=== PATIENT | female | born 1950 | race Caucasian/White ===

== ENCOUNTER 2020-01-11 14:21 | Outpatient (CLI) | payer MEDICARE, OTHER, SELFPAY ==
--- NOTE | ~2020-01-11 | MM_ITS ---
EXAMINATION: MM screening [facility] BI w [place] HISTORY: Screening mammogram TECHNIQUE: Craniocaudal and mediolateral oblique 3-D tomosynthesis images were obtained and synthetic 2-D images were generated. CAD analysis was submitted and interpreted. COMPARISON: 01/16/2019, 01/08/2019, 01/06/2018, 01/03/2017, 12/31/2016, 12/30/2015 BREAST PARENCHYMAL COMPOSITION: There are scattered areas of fibroglandular density. FINDINGS: Scattered benign-appearing calcifications are present. There is no evidence of suspicious m ass, calcification, or architectural distortion to suggest malignancy in either breast. There has bee n no suspicious interval change. IMPRESSION: 1. No mammographic evidence of malignancy. 2. Recommend routine screening mammography in one year. BI-RADS Category 2: Benign finding(s). Reviewed, dictated and finalized at location A.
== END 2020-01-11 14:22 | disposition home or self-care (01) ==
PROVIDERS: PCP Family Medicine
DX: Z12.31 Encounter for screening mammogram for malignant neoplasm of breast (principal)
CPT/HCPCS: 77063; 77067

== ENCOUNTER 2020-04-21 09:18 | Outpatient (CLI) | payer MEDICARE, OTHER, SELFPAY ==
[2020-04-21 09:37] LABS: Basophils Absolute Auto 0.1 K/mm3 (0.0-0.1); Basophils Percent Auto 1.1 % (0.2-1.2); Eosinophils Absolute Auto 0.1 K/mm3 (0-0.3); Eosinophils Percent Auto 1.7 % (0-4.4); Hematocrit 42.2 % (37.0-47.0); Immature Granulocyte Absolute 0.01 K/mm3 (0.00-0.031); Immature Granulocyte Percent A 0.2 % (0-0.5); Lymphocytes Absolute Auto 1.52 K/mm3 (0.9-3.2); Lymphocytes Percent Auto 32.5 % (18.3-44.2); Mean Corpuscular HGB Conc 33.2 g/dl (32-36); Mean Corpuscular Hemoglobin 31.4 pg (26-34); Mean Corpuscular Volume 94.6 fl (80-100); Mean Platelet Volume 10.4 fl (7.4-10.4); Monocytes Absolute Auto 0.5 K/mm3 (0.1-0.6); Monocytes Percent Auto 10.1 % (2.6-8.5); Neutrophils Absolute Auto 2.5 K/mm3 (1.3-6.7); Neutrophils Percent Auto 54.4 % (45.5-73.1); Platelet Count Result 229 k/mm3 (150-375); Red Blood Count 4.46 M/mm3 (4.2-5.4); Red Cell Distribution Width 12.9 % (11.5-14.5); White Blood Count 4.7 K/mm3 (4.5-10.0)
[2020-04-21 09:54] LABS: Add Urine Microscopic? NO; Appearance Urine Clear (Clear); Bilirubin Urine Negative (Negative); Blood Urine Negative (Negative); Color Urine Yellow (Yellow); Glucose Urine UA Negative (Negative); Ketones Urine Negative (Negative); Leukocyte Esterase Ur Negative LEU/UL (Negative); Nitrate Urine Negative (Negative); Protein Urine Negative (Negative); Specific Grav Ur 1.014 (1.001-1.035); Urobilinogen Urine Negative mg/dL (<2.0)
[2020-04-21 10:11] LABS: Alanine Aminotransferase 11 U/L (4-35); Albumin Level 4.1 g/dL (3.5-5.1); Alkaline Phosphatase 68 U/L (38-126); Aspartate Amino Transferase 23 U/L (14-36); Bilirubin,Total 0.4 mg/dL (0.2-1.3); Blood Urea Nitrogen 8 mg/dL (7-17); Calcium 9.1 mg/dL (8.4-10.2); Carbon Dioxide 30 mmol/L (22-30); Chloride 104 mmol/L (98-107); Cholesterol 202 mg/dL (0-200); Estimated Glomerular Filt Rate > 60; Glucose 89 mg/dL (65-105); HDL Direct 82 mg/dL; Potassium 4.1 mmol/L (3.4-5.0); Sodium 138 mmol/L (137-145); Triglycerides 68 mg/dL (<150)
[2020-04-21 10:29] LABS: Vitamin D 25 Hydroxy 32.8 ng/mL
[2020-04-21 10:31] LABS: LDL Cholesterol Direct 93 mg/dL
[2020-04-21 11:22] LABS: Folic Acid 10.8 ng/mL (2.76->20)
== END 2020-04-21 09:19 | disposition home or self-care (01) ==
LOC: ANHLAB 09:23
PROVIDERS: PCP Family Medicine; Visit Provider Family Medicine
DX: E78.00 Pure hypercholesterolemia, unspecified (principal); M19.91 Primary osteoarthritis, unspecified site; R79.89 Other specified abnormal findings of blood chemistry; Z13.820 Encounter for screening for osteoporosis; Z79.899 Other long term (current) drug therapy
CPT/HCPCS: 36415; 80053; 80061; 81003; 82306; 82607; 82746; 84443; 85025

== ENCOUNTER 2020-05-04 14:55 | Outpatient (CLI) | payer MEDICARE, OTHER, SELFPAY ==
--- NOTE | ~2020-05-04 | DEXA_ITS ---
Bone Density Report Name: Jewell Mathur Age: 69 Sex: Female Ethnicity: White Date of : 1950 Indication: osteopenia; Referring Provider: Ethan Nelson Study: Bone densitometry was performed. Exam Date: May 04, 2020 Accession number: [id number] Bone Density: Region BMD T-score Z-score Classification AP Spine (L1-L4) 0.967 -0.7 1.5 Normal Femoral Neck (Left) 0.637 -1.9 0.0 Osteopenia Total Hip (Left) 0.714 -1.9 -0.3 Osteopenia Total Hip Bilateral Avg 0.702 -2.0 -0.4 Osteopenia Femoral Neck (Right) 0.554 -2.7 -0.8 Osteoporosis Total Hip (Right) 0.688 -2.1 -0.5 Osteopenia World Health Organization criteria for BMD impression classify patients as: Normal (T-score at or above -1.0), Osteopenia (T-score between -1.0 and -2.5), or Osteoporosis (T-score at or below -2.5). 10-year Fracture Risk: FRAX not reported because: Some T-score for Spine Total or Hip Total or Femoral Neck at or below -2.5 Previous Exams: Region Exam Age BMD T-score BMD Change BMD Change Date g/cm2 vs Baseline vs Previous AP Spine(L1-L4) 05/04/2020 69 0.967 -0.7 0.007(0.7%)# 0.007(0.7%)# 05/02/2007 56 0.960 -0.8 Total Hip(Left) 05/04/2020 69 0.714 -1.9 -0.062(-8.0%)# -0.062(-8.0%)# 05/02/2007 56 0.776 -1.4 Total Hip(Right) 05/04/2020 69 0.688 -2.1 -0.041(-5.6%)# -0.041(-5.6%)# 05/02/2007 56 0.730 -1.7 *Denotes significance at 95% confidence level, LSC for AP Spine = 0.022 g/cm2, LSC for Total Hip = 0.027 g/cm2 Clinical Information Provided by Patient: Patient maximum height was 68 Menopause Age: 49 Drinks caffeinated beverages Onset of menses at age 9 Number of children 1 Impression: The patient has osteoporosis, based on the Right Femoral Neck T-score. No significant bone loss was observed. Discussion: INCREASED RISK OF FRACTURE. BONE DENSITY IS UNDESIRABLY LOW AT ONE OR MORE SKELETAL SITES, CONSISTENT WITH POSTMENOPAUSAL OSTEOPOROSIS. This patient's lowest T-score meets the World Health Organization's (WHO) criteria for osteoporosis at one or more sites (T-score -2.5 or below). In untreated patients, the risk of osteoporotic fracture increases approximately two-fold for each 1.0 SD decrease in T-score. Low bone density is not the only risk factor for fracture; also consider factors such as patient's age, frailty or poor health, risk of falling, risk of injury, previous osteoporotic fracture, family history of osteoporosis, cigarette smoking, lo
== END 2020-05-04 14:56 | disposition home or self-care (01) ==
LOC: ANHIMG 14:57
PROVIDERS: PCP Family Medicine; Visit Provider Family Medicine
DX: Z78.0 Asymptomatic menopausal state (principal); M85.852 Other specified disorders of bone density and structure, left thigh; M85.851 Other specified disorders of bone density and structure, right thigh; M81.0 Age-related osteoporosis without current pathological fracture
CPT/HCPCS: 77080

== ENCOUNTER 2021-01-06 12:48 | Outpatient (CLI) | payer MEDICARE, OTHER, SELFPAY | END 2021-01-06 12:49 | disposition home or self-care (01) | LOC: ANHBWCAUD 12:50 | PROVIDERS: PCP Family Medicine; Visit Provider Family Medicine | DX: H93.90 Unspecified disorder of ear, unspecified ear (principal) | CPT/HCPCS: 92557; 92567 ==

== ENCOUNTER 2021-03-14 14:16 | Outpatient (CLI) | payer MEDICARE, OTHER, SELFPAY ==
--- NOTE | ~2021-03-14 | MM_ITS ---
EXAMINATION: MM screening [facility] BI w bal[place] HISTORY: Screening mammogram TECHNIQUE: Craniocaudal and mediolateral oblique 3-D tomosynthesis images were obtained and synthetic 2-D images were generated. CAD analysis was submitted and interpreted. COMPARISON: 01/11/2020, 01/16/2019, 01/08/2019, 01/06/2018 BREAST PARENCHYMAL COMPOSITION: The breasts are heterogeneously dense, which may obscure small masses . FINDINGS: There is a chronic calcified mass in the upper outer quadrant of the left breast without si gnificant change. There is no evidence of suspicious mass, calcification, or architectural distortion to suggest malignancy in either breast. There has been no suspicious interval change. IMPRESSION: 1. No mammographic evidence of malignancy. 2. Recommend routine screening mammography in one year. BI-RADS Category 2: Benign finding(s). Reviewed, dictated and finalized at location A.
== END 2021-03-14 14:17 | disposition home or self-care (01) ==
LOC: ANHIMG 14:18
PROVIDERS: PCP Family Medicine; Visit Provider Nurse Practitioner Women's Health
DX: Z12.31 Encounter for screening mammogram for malignant neoplasm of breast (principal)
CPT/HCPCS: 77063; 77067

== ENCOUNTER 2021-06-12 07:28 | Outpatient (CLI) | payer MEDICARE, OTHER, SELFPAY ==
[2021-06-12 07:59] LABS: Basophils Percent Auto 0.8 % (0.2-1.2); Eosinophils Absolute Auto 0.1 K/mm3 (0-0.3); Eosinophils Percent Auto 2.4 % (0-4.4); Hematocrit 43.8 % (37.0-47.0); Hemoglobin 14.2 g/dL (12.0-15.0); Immature Granulocyte Absolute 0.01 K/mm3 (0.00-0.031); Immature Granulocyte Percent A 0.2 % (0-0.5); Lymphocytes Absolute Auto 1.81 K/mm3 (0.9-3.2); Lymphocytes Percent Auto 35.6 % (18.3-44.2); Mean Corpuscular HGB Conc 32.4 g/dl (32-36); Mean Corpuscular Hemoglobin 31.7 pg (26-34); Mean Corpuscular Volume 97.8 fl (80-100); Mean Platelet Volume 10.5 fl (7.4-10.4); Monocytes Absolute Auto 0.6 K/mm3 (0.1-0.6); Neutrophils Absolute Auto 2.5 K/mm3 (1.3-6.7); Platelet Count Result 197 k/mm3 (150-375); Red Blood Count 4.48 M/mm3 (4.2-5.4); Red Cell Distribution Width 12.7 % (11.5-14.5); White Blood Count 5.1 K/mm3 (4.5-10.0)
[2021-06-12 08:01] LABS: Add Urine Microscopic? NO; Appearance Urine Clear (Clear); Bilirubin Urine Negative (Negative); Blood Urine Negative (Negative); Color Urine Yellow (Yellow); Glucose Urine UA Negative (Negative); Ketones Urine Negative (Negative); Leukocyte Esterase Ur Negative LEU/UL (Negative); Nitrate Urine Negative (Negative); Protein Urine Negative (Negative); Specific Grav Ur 1.011 (1.001-1.035); Urobilinogen Urine Negative mg/dL (<2.0)
[2021-06-12 08:07] LABS: Alanine Aminotransferase 12 U/L (4-35); Albumin Level 3.9 g/dL (3.5-5.1); Alkaline Phosphatase 66 U/L (38-126); Anion Gap 3 mmol/L (8-16); Aspartate Amino Transferase 20 U/L (14-36); Bilirubin,Total 0.5 mg/dL (0.2-1.3); Blood Urea Nitrogen 8 mg/dL (7-17); Carbon Dioxide 31 mmol/L (22-30); Chloride 101 mmol/L (98-107); Cholesterol 200 mg/dL (0-200); Estimated Glomerular Filt Rate > 60; Glucose 86 mg/dL (65-110); HDL Direct 95 mg/dL; Sodium 135 mmol/L (137-145); Triglycerides 62 mg/dL (<150)
[2021-06-12 08:18] LABS: LDL Cholesterol Direct 82 mg/dL
[2021-06-12 09:22] LABS: Vitamin D 25 Hydroxy 55.8 ng/mL
[2021-06-12 11:41] LABS: Folic Acid 13.6 ng/mL (2.76->20)
== END 2021-06-12 07:29 | disposition home or self-care (01) ==
PROVIDERS: PCP Family Medicine; Visit Provider Family Medicine
DX: R79.89 Other specified abnormal findings of blood chemistry (principal); E78.00 Pure hypercholesterolemia, unspecified; Z13.9 Encounter for screening, unspecified; Z79.899 Other long term (current) drug therapy; M81.0 Age-related osteoporosis without current pathological fracture
CPT/HCPCS: 36415; 80053; 80061; 81003; 82306; 82607; 82746; 84443; 85025

== ENCOUNTER 2021-09-07 00:37 | Day surgery (SDC) | payer MEDICARE, OTHER, SELFPAY ==
[2021-08-21 13:32] VITALS: BMI 23.8
[2021-09-07 10:13] VITALS: BP 154/81; PULSE 90; RESP 16; TEMP 36.4; O2SAT 99; BMI 24.3
--- NOTE | 2021-09-07 10:17 | WPDANESEPPF ---
Anes - Initial Pre Proc Eval Procedure: Operation Date: 09/07/21 11:00 Proposed Procedures p Screening Colonoscopy - Nathaniel Muller MD Date/Time: 09/07/21 10:17 Surgeon: Nathaniel Muller MD Pre Op Diagnosis: family hx of colon ca Patient Data Age: 70 Gender: F Height: 1.73 m Weight: 72.7 kg Last Vital Signs Temp 36.4 C 09/07/21 10:13 Pulse 90 09/07/21 10:13 Resp 16 09/07/21 10:13 BP 154/81 H 09/07/21 10:13 Pulse Ox 99 09/07/21 10:13 Allergies Allergy/AdvReac Type Severity Reaction Status Date / Time No Known Allergies Allergy Mild Verified 09/07/21 10:12 Home Medications Medication Instructions Recorded Confirmed Type cholecalciferol (vitamin D3) 50 50 mcg PO DAILY 04/18/20 08/21/21 History mcg (2,000 unit) capsule ibuprofen 200 mg tablet 200 mg PO Q6H PRN 04/18/20 08/21/21 History calcium carbonate 600 mg calcium 600 mg PO DAILY 01/03/21 08/21/21 History (1,500 mg) tablet cyanocobalamin (vitamin B-12) 1,000 mcg PO DAILY 05/01/21 08/21/21 History 1,000 mcg capsule loratadine [Claritin] 10 mg PO DAILY 08/21/21 08/21/21 History Patient hx anesthesia problems: none Family hx anesthesia problems: none Results Review: All pre-operative results and documents have been reviewed as part of the pre-operative evaluation. [facility] Past Medical History Medical History (Updated 05/01/21 @ 12:08 by Ethan Nelson DO) Melanoma Surgical History Surgical History H/O breast biopsy History of cholecystectomy Hx of tonsillectomy Family History Family History Father Carcinoma of colon Grandparent Carcinoma of colon Cerebrovascular accident Family history of lung cancer Sibling Family history of hypercholesterolemia Hypertension Malignant neoplasm of prostate Social History Social History Smoking status: Never smoker Second hand tobacco smoke exposure: No Alcohol intake: former Substance use: never Living arrangements: alone Spiritual care concerns: No Anes - Eval Final PreProcedure Day of Procedure 09/07/21 10:17 Patient weight: normal Heart: regular rate and rhythm Lungs: clear to auscultation and normal air movement Airway: Mallampati scale class II Neurological: alert and oriented Last oral intake: >/= 8 hours ASA classification: II Emergent: no Anesthetic plan: proceed Anesthesia type and monitoring: general GIVS Results Review: All pre-operative results and documents have been reviewed as part of the pre-operative evaluation. Informed Consent: The patient's anesthetic plan and its attendant risks and benefits were discussed with the patient/family/POA. Questions were solicited and answers provided to the satisfaction of the patient/family/POA.
[2021-09-07] MEDS: LACTATED RINGERS 1,000 ML 150 ML IV CONT (10:28)
--- NOTE | 2021-09-07 11:14 | WPDGICN ---
Assessment and Plan Assessment and plan (1) Family history of colon cancer in father: Code(s): Z80.0 - Family history of malignant neoplasm of digestive organs Status: Acute Assessment and Plan: Patient presents for screening colonoscopy she has a family history of colon cancer in her father and several additional relatives on her father's side her family. Plan is for surveillance exam now 5 year intervals in the future. GI Consult Note Consult date/time: 09/07/21 11:14 HPI: Jewell Mathur is a 70 year old female Presents for colonoscopy. Patient states that her current weight appetite and bowel movements are normal. She denies abdominal pain. She has had no bleeding. Family history is significant her father as well as paternal grand mother and uncle of had colon cancer. Patient states that her own weight appetite bowel movements are normal. Her last colonoscopy 5 years ago was unremarkable. She presents today for surveillance exam. Review of Systems Review of Systems: All systems reviewed & are unremarkable except as noted in HPI and below PMFSH Past Medical History Medical History (Updated 09/07/21 @ 11:15 by Nathaniel Muller MD) Melanoma Surgical History Surgical History H/O breast biopsy History of cholecystectomy Hx of tonsillectomy Family History Family History Father Carcinoma of colon Grandparent Carcinoma of colon Cerebrovascular accident Family history of lung cancer Sibling Family history of hypercholesterolemia Hypertension Malignant neoplasm of prostate Social History Social History Smoking status: Never smoker Second hand tobacco smoke exposure: No Alcohol intake: former Substance use: never Living arrangements: alone Spiritual care concerns: No Meds Home Medications and Allergies Home Medications Medication Instructions Recorded Confirmed Type cholecalciferol (vitamin D3) 50 50 mcg PO DAILY 04/18/20 08/21/21 History mcg (2,000 unit) capsule ibuprofen 200 mg tablet 200 mg PO Q6H PRN 04/18/20 08/21/21 History calcium carbonate 600 mg calcium 600 mg PO DAILY 01/03/21 08/21/21 History (1,500 mg) tablet cyanocobalamin (vitamin B-12) 1,000 mcg PO DAILY 05/01/21 08/21/21 History 1,000 mcg capsule loratadine [Claritin] 10 mg PO DAILY 08/21/21 08/21/21 History Allergies Allergy/AdvReac Type Severity Reaction Status Date / Time No Known Allergies Allergy Mild Verified 09/07/21 10:12 Vital Signs Vital Signs - 24 hr 09/07/21 10:13 Temperature 97.6 F Pulse Rate 90 Respiratory Rate 16 Blood Pressure 154/81 H Pulse Oximetry 99 Exam Narrative: Physical exam reveals patient be alert. Vital signs stable. HEENT exam is unremarkable. Patient is anicteric. Lungs are clear to auscultation and percussion. Heart is without murmur or extra sounds. Abdominal exam bowel sounds are present soft nontender with no organomegaly. Digital external rectal exam is normal.
[2021-09-07 11:53] VITALS: BP 91/51; PULSE 82; RESP 20; O2SAT 99
[2021-09-07 12:03] VITALS: BP 122/68; PULSE 76; RESP 20; O2SAT 99
[2021-09-07 12:13] VITALS: BP 141/70; PULSE 80; RESP 20; O2SAT 100
== END 2021-09-07 12:22 | disposition home or self-care (01) ==
PROVIDERS: PCP Family Medicine; Visit Provider Internal Medicine Gastroenterology
PROC: 0DJD8ZZ Inspection of Lower Intestinal Tract, Via Natural or Artificial Opening Endoscopic (ICD-10-PCS; CPT 45378; principal; 2021-09-07 11:00)
DX: Z12.11 Encounter for screening for malignant neoplasm of colon (principal); K64.8 Other hemorrhoids; Z80.0 Family history of malignant neoplasm of digestive organs
CPT/HCPCS: G0105; J2704; J7120

== ENCOUNTER 2021-11-13 13:31 | Outpatient (CLI) | payer MEDICARE, OTHER, SELFPAY ==
[2021-11-13 18:43] LABS: Anion Gap 9 mmol/L (8-16); Blood Urea Nitrogen 9 mg/dL (7-17); Calcium 9.9 mg/dL (8.4-10.2); Carbon Dioxide 31 mmol/L (22-30); Chloride 97 mmol/L (98-107); Estimated Glomerular Filt Rate > 60; Glucose 96 mg/dL (65-110); Potassium 4.4 mmol/L (3.4-5.0); Sodium 137 mmol/L (137-145)
[2021-11-13 19:13] LABS: Vitamin D 25 Hydroxy 40.6 ng/mL
== END 2021-11-13 13:32 | disposition home or self-care (01) ==
PROVIDERS: PCP Family Medicine; Visit Provider Family Medicine
DX: K21.9 Gastro-esophageal reflux disease without esophagitis (principal); E55.9 Vitamin D deficiency, unspecified
CPT/HCPCS: 36415; 80048; 82306

== ENCOUNTER 2022-03-26 14:14 | Outpatient (CLI) | payer MEDICARE, OTHER, SELFPAY ==
--- NOTE | ~2022-03-26 | MM_ITS ---
EXAMINATION: MM screening [facility] BI w [place] HISTORY: Screening mammogram TECHNIQUE: Craniocaudal and mediolateral oblique 3-D tomosynthesis images were obtained and synthetic 2-D images were generated. CAD analysis was submitted and interpreted. COMPARISON: 03/14/2021, 01/11/2020 bilateral screening mammogram examinations 01/16/2019 diagnostic left mammogram and limited left breast ultrasound BREAST PARENCHYMAL COMPOSITION: The breasts are heterogeneously dense, which may obscure small masses . FINDINGS: Stable calcified anterior upper outer left breast mass. There is no evidence of suspicious mass, calcification, or architectural distortion to suggest malignancy in either breast. There has be en no suspicious interval change. IMPRESSION: 1. No mammographic evidence of malignancy. 2. Recommend routine screening mammography in one year. BI-RADS Category 2: Benign finding(s). Reviewed, dictated and finalized at location A.
== END 2022-03-26 14:15 | disposition home or self-care (01) ==
LOC: ANHIMG 14:17
PROVIDERS: PCP Family Medicine; Visit Provider Nurse Practitioner Women's Health
DX: Z12.31 Encounter for screening mammogram for malignant neoplasm of breast (principal)
CPT/HCPCS: 77063; 77067

== ENCOUNTER 2022-04-29 14:11 | Emergency (ER) | payer MEDICARE, OTHER, SELFPAY ==
[2022-04-29 14:28] VITALS: BP 151/78; PULSE 93; RESP 20; TEMP 37.4; O2SAT 100
[2022-04-29] MEDS: TETANUS,DIPHTHERIA,AC PERTUSSIS ADULT (0.5 ML) BOOSTRIX IM (15:35)
--- NOTE | 2022-04-29 15:40 | ED.GENADULT ---
HPI - General Adult General Chief complaint: Wound/Laceration Stated complaint: infected right leg wound Source: patient Mode of arrival: ambulatory Limitations: no limitations History of Present Illness HPI narrative: Patient presents for evaluation of redness to the right lower extremity. She indicates she bumped the anterior aspect of her right lower leg against a piece of concrete 2 weeks ago. She attempted to clean it. She has been applying Neosporin. She rates pain in the affected area as 3 out of 10 in severity. She had a small amount of sanguinous drainage from the abrasion site. Today she noticed some redness moving distal to the site of the abrasion. She came in to have that evaluated. Date of last tetanus 6.5 yrs ago. No fever, chills, nausea, vomiting. No purulence from the affected area. She is not diabetic. She does not smoke. Related Data Home Medications Medication Instructions Recorded Confirmed cholecalciferol (vitamin D3) 50 50 mcg PO DAILY 04/18/20 04/29/22 mcg (2,000 unit) capsule ibuprofen 200 mg tablet (Advil) 200 mg PO Q6H PRN Pain 04/18/20 04/29/22 calcium carbonate 600 mg calcium 600 mg PO DAILY 01/03/21 04/29/22 (1,500 mg) tablet (Calcium) cyanocobalamin (vitamin B-12) 1,000 mcg PO DAILY 05/01/21 04/29/22 1,000 mcg capsule loratadine 10 mg tablet (Claritin) 10 mg PO DAILY 08/21/21 04/29/22 Allergies Allergy/AdvReac Type Severity Reaction Status Date / Time No Known Allergies Allergy Mild Verified 04/29/22 15:15 Review of Systems Review of Systems: CONSTITUTIONAL: Denies fever, chills, or sweats. EYES: Denies visual changes, redness, or discharge. ENT: Denies rhinorrhea, congestion, sore throat, or otalgia. CARDIOVASCULAR: Denies chest pain, palpitations, or edema. RESPIRATORY: Denies cough or dyspnea. GASTROINTESTINAL: Denies abdominal pain, nausea, vomiting, or diarrhea. GENITOURINARY: Denies dysuria or hematuria. SKIN: Reports abrasion to the anterior aspect of the right lower leg with some surrounding erythema. MUSCULOSKELETAL: Denies back pain, joint pain, or myalgia. NEUROLOGIC: Denies headache, numbness, dizziness, or weakness. PSYCHIATRIC: Denies anxiety or depression. [facility] Past Medical History Medical History Melanoma Surgical History Surgical History H/O breast biopsy History of cholecystectomy Hx of tonsillectomy Family History Family History Father Carcinoma of colon Grandparent Carcinoma of colon Cerebrovascular accident Family history of lung cancer Sibling Family history of hypercholesterolemia Hypertension Malignant neoplasm of prostate Social History Social History Smoking status: Never smoker Second hand tobacco smoke exposure: No Alcohol intake: former Substance use: never Living arrangements: alone Occupation/Education: retired Gender identity (if verbalized by the patient): Female Spiritual care concerns: No Exam Narrative: GENERAL: Well-appearing, well-nourished, and in no acute distress. HEAD: Normocephalic, atraumatic. EYES: PERRLA and EOMI. ENT: Nares clear, no rhinorrhea or epistaxis. Mucous membranes moist. Oropharynx without tonsillar hypertrophy exudate or other lesions. Bilateral TMs pearly gonzalez nonbulging NECK: Supple. No adenopathy or masses. No carotid bruits or JVD CHEST: Clear to auscultation. No respiratory distress. No wheezes rales or rhonchi HEART: Regular rate and rhythm. No murmur heard. Normal peripheral pulses. ABDOMEN: Soft, nontender, nondistended, normal active bowel sounds. EXTREMITIES: Normal range of motion. No edema. SKIN: Proximately 2 cm abrasion to the anterior aspect of the right lower leg with dried sanguinous drainage noted. There is ap
== END 2022-04-29 15:50 | disposition home or self-care (01) ==
PROVIDERS: Emergency Provider Nurse Practitioner; PCP Family Medicine
DX: L03.115 Cellulitis of right lower limb (principal); S80.811A Abrasion, right lower leg, initial encounter; W22.8XXA Striking against or struck by other objects, initial encounter; Z23 Encounter for immunization; Z85.820 Personal history of malignant melanoma of skin
CPT/HCPCS: 90471; 90715; 99213; G0463

== ENCOUNTER 2022-05-18 14:13 | Outpatient (CLI) | payer MEDICARE, OTHER, SELFPAY ==
[2022-05-18 14:33] LABS: Hematocrit 42.2 % (37.0-47.0); Hemoglobin 13.8 g/dL (12.0-15.0); Mean Corpuscular HGB Conc 32.7 g/dl (32-36); Mean Corpuscular Hemoglobin 31.1 pg (26-34); Mean Platelet Volume 10.1 fl (7.4-10.4); Platelet Count Result 227 k/mm3 (150-375); Red Blood Count 4.44 M/mm3 (4.2-5.4); Red Cell Distribution Width 12.7 % (11.5-14.5); White Blood Count 6.3 K/mm3 (4.5-10.0)
[2022-05-18 14:42] LABS: Alanine Aminotransferase 12 U/L (6-35); Albumin Level 4.2 g/dL (3.5-5.1); Alkaline Phosphatase 77 U/L (38-126); Anion Gap 5 mmol/L (8-16); Aspartate Amino Transferase 18 U/L (14-36); Bilirubin,Total 0.3 mg/dL (0.2-1.3); Blood Urea Nitrogen 5 mg/dL (7-17); Carbon Dioxide 30 mmol/L (22-30); Chloride 103 mmol/L (98-107); Estimated Glomerular Filt Rate > 60; Glucose 96 mg/dL (65-110); Sodium 138 mmol/L (137-145)
--- NOTE | 2022-05-22 16:13 | WPDHOLTEREM ---
Holter/Event Monitor Holter/Event Monitor Date of procedure: 05/22/22 Holter/Event Procedure: 48 Hr Holter Monitor Diagnosis: 71-year-old female with an abnormal EKG Indications: Abnormal EKG Image/Tracing Quality: Good Finding: The patient was monitored for 48 hours. The underlying rhythm was sinus with a minimum heart rate of 59 beats per minute, average heart rate of 80 beats per minute and a maximum heart rate of 125 beats per minute. Occasional PVCs were seen, with a 1.2% burden. There were 7 couplets, but no ventricular tachycardia. Only 42 APCs were seen. There was no atrial fibrillation. The patient has underlying bundle branch block but no high-degree AV block was seen. There was no ventricular tachycardia or SVT. The patient had several symptoms. The patient had chest tightness while walking in bookstore at 3:45 p.m. she was in sinus rhythm with frequent PVCs. At 6:00 p.m. she noted palpitations while walking in her house and she was in sinus rhythm rate 82 beats per minute. At 7:27 p.m. she had palpitations while sitting and she had sinus rhythm rate 73 be p.m.. At 8:13 p.m. she had fullness in her throat while walking in the yard and she was in NSR with frequent PVCs, and quadrigeminy. At 8:22 p.m. she had fullness in his throat while sitting and she was in sinus rhythm with occasional PVCs. At 6:57 a.m. she had fullness in her throat while going up and down the stairs and she was in sinus tachycardia rate 108 beats per minute. At 12:12 p.m. she noted palpitations while getting dressed and she was in sinus rhythm sinus tachycardia rate 102 beats per minute. At 9:09 p.m. she noted palpitations while sitting and she was in sinus rhythm with frequent PVCs. As 6:58 a.m. she noted palpitations while fixing breakfast and she was in sinus rhythm rate 100 with occasional PVCs. At 11:38 a.m. she had palpitations while walking and she was in sinus rhythm with frequent PVCs. Conclusion: Holter monitor is remarkable for occasional PVCs with a 1.2% burden. Symptoms generally correlated with frequent PVCs, but occasionally with sinus rhythm and sinus tachycardia.
== END 2022-05-18 14:14 | disposition home or self-care (01) ==
LOC: ANHCARD 14:17
PROVIDERS: PCP Family Medicine; Visit Provider Family Medicine
DX: H69.83 Other specified disorders of Eustachian tube, bilateral (principal); Z13.820 Encounter for screening for osteoporosis; R00.9 Unspecified abnormalities of heart beat; R94.31 Abnormal electrocardiogram [ECG] [EKG]
CPT/HCPCS: 36415; 80053; 85027; 93225; 93226

== ENCOUNTER → 2022-08-03 12:39 | Outpatient (CLI) | payer MEDICARE, OTHER, SELFPAY ==
--- NOTE | ~2022-08-03 | DEXA_ITS ---
Bone Density Report Name: TEENA HUERTA Age: 71 Sex: Female Ethnicity: White Date of : 1950 Indication: postmenopausal; screening for osteoporosis; height loss; prior fracture; Referring Provider: TORSTEN BOYLE Study: Bone densitometry was performed. Exam Date: August 03, 2022 Accession number: [id number] Bone Density: Region BMD T-score Z-score Classification AP Spine (L1, L3, L4) 0.895 -1.4 0.9 Osteopenia Femoral Neck (Left) 0.580 -2.4 -0.4 Osteopenia Total Hip (Left) 0.708 -1.9 -0.2 Osteopenia Femoral Neck (Right) 0.590 -2.3 -0.3 Osteopenia Total Hip (Right) 0.681 -2.1 -0.4 Osteopenia Total Hip Mean 0.695 -2.0 -0.3 Osteopenia World Health Organization criteria for BMD impression classify patients as: Normal (T-score at or above -1.0), Osteopenia (T-score between -1.0 and -2.5), or Osteoporosis (T-score at or below -2.5). 10-year Fracture Risk(1): Major Osteoporotic Fracture 22% Hip Fracture 5.9% Reported Risk Factors: [place] (), Neck BMD=0.580, BMI=26.9, previous fracture (1) FRAX(R) Version 3.08. Fracture probability calculated for an untreated patient. Fracture probability may be lower if the patient has received treatment. Clinical Information Provided by Patient: Has had a low trauma fracture Has used the following medications: Vitamin D, Calcium Patient maximum height was 68.0 Menopause Age: 49 Does not regularly consume dairy products Drinks caffeinated beverages Onset of menses at age 9 Number of children 1 Impression: The patient has low bone mass, based on the Left Femoral Neck T-score. The patient has an estimated ten-year risk of hip fracture of 5.9% and an estimated ten-year risk of major fracture of 22%, based on the WHO FRAX algorithm. The patient has risk factors, including: previous fracture. Discussion: BONE DENSITY IS LOW AT ONE OR MORE SKELETAL SITES. THE PATIENT'S BMD AND CLINICAL RISK FACTORS CONTRIBUTE TO THIS PATIENT'S HIGH RISK OF FRACTURE. This patient's lowest T-score is low at one or more skeletal sites. It meets the World Health Organization's (WHO) criteria for ?low bone mass? (T-score between -1.0 and -2.5). The patient's 10-year risk of hip fracture and 10 year risk of a major osteoporotic fracture as calculated by FRAX exceeds the threshold where pharmacological therapy is recommended by the National Osteoporosis Foundation (NOF). However, all treatment decisions require clinical judgment and consideration of individual patient factors, including patient preferences, comorbidities, previous drug use, risk factors not captured in the FRAX model (e.g., frailty, falls, vitamin D deficiency, increased bone turnover, interval significant decline in bone density) and possible under or overestimation of fracture risk by FRAX. The patient pop
== END ==
PROVIDERS: PCP Family Medicine; Visit Provider Family Medicine
DX: Z13.820 Encounter for screening for osteoporosis (principal); M81.0 Age-related osteoporosis without current pathological fracture; M85.89 Other specified disorders of bone density and structure, multiple sites
CPT/HCPCS: 77080

== ENCOUNTER 2022-11-15 14:45 | Outpatient (CLI) | payer MEDICARE, OTHER, SELFPAY ==
[2022-11-15 19:24] LABS: Hematocrit 45.3 % (37.0-47.0); Hemoglobin 14.8 g/dL (12.0-15.0); Mean Corpuscular HGB Conc 32.7 g/dl (32-36); Mean Corpuscular Hemoglobin 31.6 pg (26-34); Mean Corpuscular Volume 96.8 fl (80-100); Mean Platelet Volume 11.4 fl (7.4-10.4); Platelet Count Result 244 k/mm3 (150-375); Red Blood Count 4.68 M/mm3 (4.2-5.4); Red Cell Distribution Width 12.9 % (11.5-14.5); White Blood Count 6.4 K/mm3 (4.5-10.0)
[2022-11-15 20:50] LABS: Alanine Aminotransferase 17 U/L (6-35); Albumin Level 4.4 g/dL (3.5-5.1); Alkaline Phosphatase 106 U/L (38-126); Anion Gap 7 mmol/L (8-16); Aspartate Amino Transferase 25 U/L (14-36); Bilirubin,Total 0.3 mg/dL (0.2-1.3); Blood Urea Nitrogen 10 mg/dL (7-17); Calcium 9.2 mg/dL (8.4-10.2); Carbon Dioxide 30 mmol/L (22-30); Chloride 99 mmol/L (98-107); Cholesterol 235 mg/dL (0-200); Estimated Glomerular Filt Rate > 60; Glucose 96 mg/dL (65-110); HDL Direct 90 mg/dL; Potassium 4.2 mmol/L (3.4-5.0); Sodium 136 mmol/L (137-145); Triglycerides 71 mg/dL (<150)
[2022-11-15 20:56] LABS: Vitamin D 25 Hydroxy 37.5 ng/mL
[2022-11-15 21:01] LABS: LDL Cholesterol Direct 98 mg/dL
== END 2022-11-15 14:46 | disposition home or self-care (01) ==
PROVIDERS: PCP Family Medicine; Visit Provider Family Medicine
DX: Z00.00 Encounter for general adult medical examination without abnormal findings (principal); H69.83 Other specified disorders of Eustachian tube, bilateral; H90.3 Sensorineural hearing loss, bilateral; K21.9 Gastro-esophageal reflux disease without esophagitis; M48.061 Spinal stenosis, lumbar region without neurogenic claudication; R79.89 Other specified abnormal findings of blood chemistry; Z12.39 Encounter for other screening for malignant neoplasm of breast; E55.9 Vitamin D deficiency, unspecified
CPT/HCPCS: 36415; 80053; 80061; 82306; 85027

== ENCOUNTER 2022-11-22 14:13 | Outpatient (CLI) | payer MEDICARE, OTHER, SELFPAY ==
[2022-11-22 20:08] LABS: Appearance Urine Clear (Clear); Bilirubin Urine Negative (Negative); Blood Urine Negative (Negative); Color Urine Yellow (Yellow); Glucose Urine UA Negative (Negative); Ketones Urine Negative (Negative); Leukocyte Esterase Ur Negative LEU/UL (NEGATIVE); Nitrate Urine Negative (Negative); Protein Urine Negative (Negative); Specific Grav Ur 1.015 (1.001-1.035); Urobilinogen Urine 0.2 mg/dL (<2.0)
[2022-11-22 20:09] LABS: Add Urine Microscopic? NO
== END 2022-11-22 14:14 | disposition home or self-care (01) ==
LOC: ANHBWCLAB 14:15
PROVIDERS: PCP Family Medicine; Visit Provider Family Medicine
DX: N30.90 Cystitis, unspecified without hematuria (principal)
CPT/HCPCS: 81003; 87086

== ENCOUNTER 2023-03-28 14:34 | Outpatient (CLI) | payer MEDICARE, OTHER, SELFPAY ==
--- NOTE | ~2023-03-28 | MM_ITS ---
EXAMINATION: MM screening [facility] BI w [place] HISTORY: Screening mammogram TECHNIQUE: Craniocaudal and mediolateral oblique 3-D tomosynthesis images were obtained and synthetic 2-D images were generated. CAD analysis was submitted and interpreted. COMPARISON: 03/26/2022, 03/14/2021, 01/11/2020 BREAST PARENCHYMAL COMPOSITION: There are scattered areas of fibroglandular density. FINDINGS: RIGHT BREAST: An asymmetry is present in the middle third of the central breast in line with the nipp le axis on the mediolateral oblique view. LEFT BREAST: An asymmetry is present in the middle third of the central breast on the craniocaudal vi ew. IMPRESSION: 1. Bilateral breast asymmetries. 2. Additional mammographic views and possible breast ultrasound are recommended. BI-RADS Category 0: Incomplete: Needs additional imaging evaluation. Reviewed, dictated and finalized at location A. IMPRESSION: 1. Bilateral breast asymmetries. 2. Additional mammographic views and possible breast ultrasound are recommended . BI-RADS Category 0: Incomplete: Needs additional imaging evaluation.
== END 2023-03-28 14:35 | disposition home or self-care (01) ==
PROVIDERS: PCP Family Medicine; Visit Provider Nurse Practitioner Women's Health
DX: Z12.31 Encounter for screening mammogram for malignant neoplasm of breast (principal); N64.89 Other specified disorders of breast
CPT/HCPCS: 77063; 77067

== ENCOUNTER 2023-04-11 12:17 | Outpatient (CLI) | payer MEDICARE, OTHER, SELFPAY ==
--- NOTE | ~2023-04-11 | MM_ITS ---
EXAMINATION: MM diagnostic [facility] BI w bal[place] HISTORY: Follow-up breast asymmetries TECHNIQUE: Additional 3-D tomosynthesis images of the breasts were performed and synthetic 2-D images were generated. CAD analysis was submitted and interpreted. COMPARISON: Comparison to multiple prior studies sequentially, with oldest reviewed study dated 05/2019. BREAST PARENCHYMAL COMPOSITION: Breast composed of scattered areas of fibroglandular density FINDINGS: The breasts are stable. Bilateral breast asymmetries compress with spot views, compatible w ith superimposed fibroglandular tissue. No new masses, calcifications or architectural distortion in either breast to suggest malignancy. IMPRESSION: 1. No mammographic evidence for malignancy in either breast. 2. Routine yearly screening mammogram and regular clinical breast examination are recommended. BI-RADS Category 2: Benign finding(s). Reviewed, dictated and finalized at location A. IMPRESSION: 1. No mammographic evidence for malignancy in either breast. 2. Routine yearly screening mammogram and regular clinical breast examination a re recommended. BI-RADS Category 2: Benign finding(s).
== END 2023-04-11 12:18 | disposition home or self-care (01) ==
PROVIDERS: PCP Family Medicine; Visit Provider Family Medicine
DX: R92.8 Other abnormal and inconclusive findings on diagnostic imaging of breast (principal)
CPT/HCPCS: 77062; 77066; G0279

== ENCOUNTER 2023-11-20 10:13 | Outpatient (CLI) | payer MEDICARE, OTHER, SELFPAY ==
[2023-11-20 11:04] LABS: Basophils Absolute Auto 0.1 K/mm3 (0.0-0.1); Eosinophils Absolute Auto 0.2 K/mm3 (0-0.3); Eosinophils Percent Auto 3.6 % (0-4.4); Hematocrit 45.5 % (37.0-47.0); Hemoglobin 14.7 g/dL (12.0-15.0); Immature Granulocyte Absolute 0.02 K/mm3 (0.00-0.031); Immature Granulocyte Percent A 0.3 % (0-0.5); Lymphocytes Absolute Auto 1.74 K/mm3 (0.9-3.2); Lymphocytes Percent Auto 29.5 % (18.3-44.2); Mean Corpuscular HGB Conc 32.3 g/dl (32-36); Mean Corpuscular Hemoglobin 31.1 pg (26-34); Mean Corpuscular Volume 96.2 fl (80-100); Mean Platelet Volume 10.8 fl (7.4-10.4); Monocytes Absolute Auto 0.6 K/mm3 (0.1-0.6); Neutrophils Absolute Auto 3.3 K/mm3 (1.3-6.7); Neutrophils Percent Auto 55.6 % (45.5-73.1); Platelet Count Result 253 k/mm3 (150-375); Red Blood Count 4.73 M/mm3 (4.2-5.4); Red Cell Distribution Width 13.1 % (11.5-14.5); White Blood Count 5.9 K/mm3 (4.5-10.0)
[2023-11-20 11:18] LABS: Alanine Aminotransferase 12 U/L (6-35); Albumin Level 4.1 g/dL (3.5-5.1); Alkaline Phosphatase 86 U/L (38-126); Anion Gap 4 mmol/L (8-16); Aspartate Amino Transferase 18 U/L (14-36); Bilirubin,Total 0.8 mg/dL (0.2-1.3); Blood Urea Nitrogen 10 mg/dL (7-17); Calcium 9.2 mg/dL (8.4-10.2); Carbon Dioxide 33 mmol/L (22-30); Chloride 102 mmol/L (98-107); Cholesterol 229 mg/dL (0-200); Estimated Glomerular Filt Rate > 60; Glucose 89 mg/dL (65-110); HDL Direct 93 mg/dL; Potassium 4.1 mmol/L (3.4-5.0); Sodium 139 mmol/L (137-145); Triglycerides 94 mg/dL (<150)
[2023-11-20 11:29] LABS: LDL Cholesterol Direct 108 mg/dL
[2023-11-20 11:46] LABS: Vitamin D 25 Hydroxy 84.8 ng/mL
[2023-11-20 11:59] LABS: Thyroid Stimulating Hormone Reflex 0.728 uIU/mL (0.465-4.68)
== END 2023-11-20 10:14 | disposition home or self-care (01) ==
LOC: ANHLAB 10:15
PROVIDERS: PCP Nurse Practitioner Adult Health; Visit Provider Nurse Practitioner Adult Health
DX: E78.5 Hyperlipidemia, unspecified (principal); M81.0 Age-related osteoporosis without current pathological fracture
CPT/HCPCS: 36415; 80053; 80061; 82306; 84443; 85025

== ENCOUNTER 2024-03-23 14:16 | Outpatient (CLI) | payer MEDICARE, OTHER, SELFPAY ==
--- NOTE | ~2024-03-23 | XR_ITS ---
XR knee LT 3V DATE: 03/23/2024 14:28 INDICATION: Left knee pain TECHNIQUE: AP, lateral, sunrise views COMPARISON: None FINDINGS: There is prominent diffuse osteopenia. Intra-articular loose body or chondrocalcinosis. Joint spaces are relatively well-preserved. No fracture or dislocation, periosteal reaction or bone destruction. IMPRESSION: Osteopenia Reviewed, dictated and finalized at location B. IMPRESSION: Osteopenia
== END 2024-03-23 14:17 | disposition home or self-care (01) ==
LOC: ANHBWCIMG 14:18
PROVIDERS: PCP Nurse Practitioner Adult Health; Visit Provider Nurse Practitioner Adult Health
DX: M85.88 Other specified disorders of bone density and structure, other site (principal)
CPT/HCPCS: 73562

== ENCOUNTER 2024-05-01 14:41 | Outpatient (CLI) | payer MEDICARE, OTHER, SELFPAY ==
--- NOTE | ~2024-05-01 | MM_ITS ---
EXAMINATION: MM screening [facility] BI w bal[place] HISTORY: Screening mammogram TECHNIQUE: Craniocaudal and mediolateral oblique 3-D tomosynthesis images were obtained and synthetic 2-D images were generated. CAD analysis was submitted and interpreted. COMPARISON: 04/11/2030, 03/28/2023, 03/26/2022, 03/14/2021 BREAST PARENCHYMAL COMPOSITION:Not Dense. There are scattered areas of fibroglandular density. FINDINGS: No suspicious mass, calcification, or architectural distortion are identified in either david ast to suggest malignancy. There has been no suspicious interval change. IMPRESSION: No mammographic evidence of malignancy. Recommend routine screening mammography in one year. BI-RADS Category 1: Negative Reviewed, dictated and finalized at location .
== END 2024-05-01 14:42 | disposition home or self-care (01) ==
LOC: ANHIMG 14:44
PROVIDERS: PCP Family Medicine; Visit Provider Nurse Practitioner Women's Health
DX: Z12.31 Encounter for screening mammogram for malignant neoplasm of breast (principal)
CPT/HCPCS: 77063; 77067

== ENCOUNTER 2024-06-10 07:47 | Outpatient (CLI) | payer MEDICARE, OTHER, SELFPAY ==
[2024-06-10 08:18] LABS: Basophils Absolute Auto 0.1 K/mm3 (0.0-0.1); Eosinophils Absolute Auto 0.2 K/mm3 (0-0.3); Eosinophils Percent Auto 3.5 % (0-4.4); Hematocrit 47.1 % (37.0-47.0); Immature Granulocyte Absolute 0.02 K/mm3 (0.00-0.031); Immature Granulocyte Percent A 0.3 % (0-0.5); Lymphocytes Absolute Auto 1.77 K/mm3 (0.9-3.2); Lymphocytes Percent Auto 29.5 % (18.3-44.2); Mean Corpuscular HGB Conc 31.8 g/dl (32-36); Mean Corpuscular Hemoglobin 31.1 pg (26-34); Mean Corpuscular Volume 97.7 fl (80-100); Mean Platelet Volume 10.5 fl (7.4-10.4); Monocytes Absolute Auto 0.7 K/mm3 (0.1-0.6); Monocytes Percent Auto 10.8 % (2.6-8.5); Neutrophils Absolute Auto 3.3 K/mm3 (1.3-6.7); Neutrophils Percent Auto 54.9 % (45.5-73.1); Platelet Count Result 251 k/mm3 (150-375); Red Blood Count 4.82 M/mm3 (4.2-5.4); Red Cell Distribution Width 13.2 % (11.5-14.5)
[2024-06-10 08:25] LABS: Alanine Aminotransferase 13 U/L (6-35); Albumin Level 4.3 g/dL (3.5-5.1); Alkaline Phosphatase 73 U/L (38-126); Anion Gap 5 mmol/L (4-12); Aspartate Amino Transferase 18 U/L (14-36); Bilirubin,Total 0.6 mg/dL (0.2-1.3); Blood Urea Nitrogen 9 mg/dL (7-17); Calcium 9.2 mg/dL (8.4-10.2); Carbon Dioxide 33 mmol/L (22-30); Chloride 100 mmol/L (98-107); Cholesterol 243 mg/dL (0-200); Estimated Glomerular Filt Rate > 60; Glucose 87 mg/dL (65-110); HDL Direct 96 mg/dL; Potassium 4.2 mmol/L (3.4-5.0); Sodium 138 mmol/L (137-145); Triglycerides 88 mg/dL (<150)
[2024-06-10 08:36] LABS: LDL Cholesterol Direct 116 mg/dL
[2024-06-10 11:42] LABS: Vitamin D 25 Hydroxy 78.6 ng/mL
== END 2024-06-10 07:48 | disposition home or self-care (01) ==
PROVIDERS: PCP Nurse Practitioner Adult Health; Visit Provider Nurse Practitioner Adult Health
DX: E78.5 Hyperlipidemia, unspecified (principal); R79.89 Other specified abnormal findings of blood chemistry; Z79.899 Other long term (current) drug therapy
CPT/HCPCS: 36415; 80053; 80061; 82306; 84443; 85025

== ENCOUNTER 2024-08-28 12:47 | Outpatient (CLI) | payer MEDICARE, OTHER, SELFPAY ==
--- NOTE | ~2024-08-28 | DEXA_ITS ---
Bone Density Report Name: TEENA HUERTA Age: 73 Sex: Female Ethnicity: White Date of : 1950 Indication: osteopenia; cancer; Referring Provider: KARYN WOLFE Study: Bone densitometry was performed. Exam Date: August 28, 2024 Accession number: [id number] Bone Density: Region BMD T-score Z-score Classification AP Spine(L1-L4) 0.977 -0.6 1.8 Normal Femoral Neck (Left) 0.595 -2.3 -0.2 Osteopenia Total Hip (Left) 0.665 -2.3 -0.5 Osteopenia Femoral Neck (Right) 0.699 -1.4 0.8 Osteopenia Total Hip (Right) 0.683 -2.1 -0.3 Osteopenia Total Hip Mean 0.674 -2.2 -0.4 Osteopenia World Health Organization criteria for BMD impression classify patients as: Normal (T-score at or above -1.0), Osteopenia (T-score between -1.0 and -2.5), or Osteoporosis (T-score at or below -2.5). 10-year Fracture Risk(1): Major Osteoporotic Fracture 15% Hip Fracture 4.2% Reported Risk Factors: [place] (), Neck BMD=0.595, BMI=28.3 (1) FRAX(R) Version 3.08. Fracture probability calculated for an untreated patient. Fracture probability may be lower if the patient has received treatment. Previous Exams: Region Exam Age BMD T-score BMD Change BMD Change Date g/cm2 vs Baseline vs Previous AP Spine (L1-L4) 08/28/2024 73 0.977 -0.6 0.009 (1.0%)# 0.009 (1.0%)# 05/04/2020 69 0.967 -0.7 Total Hip(Left) 08/28/2024 73 0.665 -2.3 -0.049 (-6.9%) -0.049 (-6.9%) 05/04/2020 69 0.714 -1.9 Total Hip(Right) 08/28/2024 73 0.683 -2.1 -0.005 (-0.8%) -0.005 (-0.8%) 05/04/2020 69 0.688 -2.1 *Denotes significance at 95% confidence level, LSC for AP Spine = 0.022 g/cm2, LSC for Total Hip = 0.027 g/cm2 # Denotes dissimilar scan types or analysis methods Clinical Information Provided by Patient: Has used the following medications: Vitamin D, Calcium Has the following medical conditions: Cancer Patient maximum height was 68 Menopause Age: 49 No regular weight bearing exercise Does not regularly consume dairy products Drinks caffeinated beverages Onset of menses at age 9 Number of children 1 Impression: The patient has low bone mass, based on the Left Total Hip T-score. The patient has an estimated ten-year risk of hip fracture of 4.2% and an estimated ten-year risk of major fracture of 15%, based on the WHO FRAX algorithm. No significant bone loss was observed. Discussion: BONE DENSITY IS LOW AT ONE OR MORE SKELETAL SITES. THE PATIENT'S BMD AND CLINICAL RISK FACTORS CONTRIBUTE TO THIS PATIENT'S INCREASED RISK OF FRACTURE. This patient's lowest T-score is low at one or more skeletal sites. It meets the World Health Organization's (WHO) criteria for ?low bone mass? (T-score between -1.0 and -2.5). The patient's 10-year risk of hip fracture as calculated by FRAX exceeds the threshold where pharmacological therapy is recommended by the National Osteoporosis Foundation (NOF). However, all treatment decisions require clinical judgment and consideration of individual patient factors, including patient preferences, comorbidities, previous drug use, risk factors not captured in the FRAX model (e.g., frailty, falls, vitamin D deficiency, increased bone turnover, interval significant decline in bone density) and possible under or overestimation of fracture risk by FRAX. The patient should follow a healthful lifestyle (good nutrition with adequate calcium and vitamin D, and appropriate weight-bearing exercise). Follow-Up: Consider a repeat BMD and Vertebral Fracture Assessment (VFA) exam in 2 years or sooner if medically necessary, to reassess this patient's status. Reported by: PENELOPE on 08/28/2024 1:15:00 PM. Reviewed, dictated and finalized at location [facility]
== END 2024-08-28 12:48 | disposition home or self-care (01) ==
LOC: ANHIMG 12:47
PROVIDERS: PCP Family Medicine; Visit Provider Nurse Practitioner Adult Health
DX: Z78.0 Asymptomatic menopausal state (principal); M85.89 Other specified disorders of bone density and structure, multiple sites
CPT/HCPCS: 77080

== ENCOUNTER 2024-11-23 13:48 | Outpatient (CLI) | payer MEDICARE, OTHER, SELFPAY ==
--- NOTE | ~2024-11-23 | XR_ITS ---
AP view of the pelvis and AP and lateral views of the bilateral hips Clinical history: Pain Findings: No acute fracture or dislocation is seen. Osseous alignment is anatomic. There is mild to m oderate degenerative change of the right hip joint. Left hip joint intact. Soft tissues are unremarka ble. Impression: Mild to moderate right hip joint degenerative change. Degenerative spondylosis of the visualized lower lumbar spine. Reviewed, dictated and finalized at location M. [facility]PER[facility] Impression: Mild to moderate right hip joint degenerative change. Degenerative spondylosis of the visualized lower lumbar spine.
--- NOTE | ~2024-11-23 | XR_ITS ---
EXAMINATION: XR lumbar spine 2-3V DATE: 11/23/2024 14:09 INDICATION: Dorsalgia TECHNIQUE: Anteroposterior and lateral views of the lumbar spine, and cone-down lateral view of the l umbosacral junction were obtained. COMPARISON: Lumbar spine MR dated 01/16/2006 FINDINGS: 14 degree lumbar dextroscoliosis. Sagittal alignment is normal. Vertebral body heights are normal. Mo derate to severe left-sided predominant disc height loss at L2-L3. Moderate disc height loss at L1-L2 , L4-L5 and L5-S1. Mild to moderate left-sided predominant disc height loss at L3-L4. Moderate to sev ere lumbar facet osteoarthritis. Mild osteoarthritis at the bilateral sacroiliac joints. Cholecystect wendy clips in right upper quadrant. IMPRESSION: 1. 14 degrees lumbar dextroscoliosis with moderate to severe spondylosis. Reviewed, dictated and finalized at location A. [facility]
--- OUTSIDE RECORDS SUMMARY | 2024-11-26 13:43 | XMS_ITS | Clinical Summary ---
Author Organization [facility] Medical Office Building B Address [address] [place] [address] Care Team Providers Care Pipe Organ Builder Name Role Phone Toño Soni MD Primary Care Provider [phone] Allergies No known active allergies Medications cholecalciferol (VITAMIN D-3) 2000 unit capsule 2,000 Units Active cyanocobalamin (Vitamin B-12) 2,500 mcg tablet, sublingualIndic ations:Preventi on of Vitamin B12 Deficiency Activ e metoprolol tartrate (LOPRESSOR) 25 mg immediate release tablet Take 1 tablet (25 mg total) by mouth 2 (two) times a day 07/17/2022 Active calcium carbonate (OS-PAULINO) 648 mg (260 mg elemental) tablet 260 mg Active ergocalciferol (VITAMIN D) 50,000 unit capsule Take 1 capsule (50,000 Units total) by mouth once a week Active Active Problems Problem Noted Date Diagnosed Date Melanoma in situ of left upper extremity includi ng shoulder 02/07/2021 History of female genital system disorder 2012 Overview (02/06/2017): History of endometriosis Encounters Date Type Department Care Team Description 09/18/2024 8:00 AM RESULTS ENGINEER Office Visit [facility] Women[facility] Care at [address] [address] Radha Rankin NP Well woman exam (Primary Dx); Encounter for screening mammogram for malignant neoplasm of breast from Last 3 Months Surgical History Surgery Date Site/Laterality Comments OTHER SURGICAL HISTORY 1996 Cholecystitis: Cholecystectomy OTHER SURGICAL HISTORY 1986 laprascopy OTHER SURGICAL HISTORY 1971 : 12 hr labor OTHER SURGICAL HISTORY 1988 laprascopy BREAST BIOPSY 1966 breast biopsy Medical History Medical History Date Comments Hx Other Medical 1996 Cholecystitis Hx Other Medical 1971 ; Outc ome: 40 week 6 lb(s) Male Family History Medical History Relation Name Comments Colon cancer Father Cancer, colon; Colon cancer Paternal Grandmother Cancer, colon; Relation Name Status Comments Father Paternal Grandmother Social History Tobacco Use Types Packs/Day Years Used Date Smoking Tobacco: Never Smokeless Tobacco: Never Alcohol Use Standard Drinks/Week Comments Yes 0 (1 standard drink = 0.6 oz pur e alcohol) PHQ-2 Answer Date Recorded PHQ-2 Total Score (If total score is 3 or more points, staff should administer the PHQ-9) 0 09/18/2024 Comments No Sex and Gender Information Value Date Recorded Sex Assigned at Not on file Legal Sex Female 11:38 AM RESULTS ENGINEER Gender Identity Female 02/02/2021 4:43 PM CDT Sexual Orientation Not on file Obstetrics History Para Term AB IAB SAB Ectopic Multiple Livin g Live Births 1 1 Date Outcome GA Total Labor Labor/2nd/3rd Weight Sex Type Anes PTL Pau A1 A5 Name Clin Para Last Filed Vital Signs Vital Sign Reading Time Taken Comments Blood Pressure 126/72 09/18/2024 8:12 AM RESULTS ENGINEER Pulse - - Temperature - - Respiratory Rate - - Oxygen Saturation - - Inhaled Oxygen Concentration - - Weight 84.8 kg (187 lb) 09/18/2024 8:12 AM RESULTS ENGINEER Height 170.2 cm (5' 7 ) 09/18/2024 8:12 AM RESULTS ENGINEER Body Mass Index 29.29 09/18/2024 8:12 AM RESULTS ENGINEER Plan of Treatment Health Maintenance Due Date Last Done Comments Fall Risk Assessment 1950 Hepatitis C Screening 1950 DTaP/Tdap/Td Vaccine (1 - Tdap) 1959 Hepatitis B Screening 1966 Zoster Vaccine (1 of 2) 1998 Well Visit 65+ 2013 Pneumococcal vaccine 65+ (2 of 2 - PCV) 09/03/2019 09/03/2018 Osteoporosis Screening-Bone Density Scan 05/04/2022 05/04/2020 Influenza Vaccine (#1) 2024 0, 08/21/2019, 07/30/2018, Additional history exists Depression Screening 09/18/2025 09/18/2024, 08/13/2022, 08/09/2020, Additional history exists Breast Cancer Screening-Mammogram Discontinued 05/05/2024, 03/28/2023, 03/26/2022, Additional history exists Procedures Procedure Name Priority Date/Time Associated Diagnosis Comments SCREENING MAMMOGRAM 2D BILATERAL Schedule Routine, Read Routine (OP Routine) 05/05/2024 8:54 AM CDT DEXA AXIAL SKELETON BONE DENSITY 1 OR MORE SITES Schedule Routine, Read Routine (OP Routine) 05/04/2020 from Last 3 Months or Most Recently Relevant to Health Maintenance Results * Screening Mammogram 2D Bilateral (05/05/2024 8:54 AM CDT) Anatomical Region Laterality Modality Breast Bilateral Mammography Historical Provider IMG MAMMO PROCEDURES Chuyita l Result * Dexa Axial Skeleton Bone Density 1 or 2 Site (05/04/2020) Anatomical Region Laterality Modality Body N/A Radiographic Ladan ging Jaleesa Johnson NP IMG DXA PROCEDURES Final Result from Last 3 Months or Most Recently Relevant to Health Maintenance Insurance [facility] MEDICARE [facility] [place] [id number] MEDICARE [facility] [place] [id number] MEDICARE [facility] Care Teams Pipe Organ Builder Relationship Specialty Start Date End Date Toño Soni MD [address] [place] [address] PCP - General 02/01/17
--- OUTSIDE RECORDS SUMMARY | 2024-11-26 13:43 | XMS_ITS | Referral Summary ---
Author Organization [facility] Medical Office Building B Address [address] [place] [address] Care Team Providers Care Multifocal Button Inspector Name Role Phone Toño Soni MD Primary Care Provider [phone] Encounters Date Type Department Care Team Description 09/18/2024 8:00 AM OPTOMETRIC COORDINATOR Office Visit [facility] Women's Health Care at [address] [address] Radha Rankin NP Well woman exam (Primary Dx); Encounter for screening mammogram for malignant neoplasm of breast from Last 3 Months Allergies No known active allergies Medications cholecalciferol [...] disorder 2012 Overview (02/06/2017): History of endometriosis Social History Tobacco Use Types Packs/Day Years [...] on file Legal Sex Female 11:38 AM OPTOMETRIC COORDINATOR Gender Identity Female 02/02/2021 4:43 PM CDT Sexual Orientation Not on file Last Filed Vital Signs Vital Sign Reading Time Taken Comments Blood Pressure 126/72 09/18/2024 8:12 AM OPTOMETRIC COORDINATOR Pulse - - Temperature - - Respiratory Rate - - Oxygen Saturation - - Inhaled Oxygen Concentration - - Weight 84.8 kg (187 lb) 09/18/2024 8:12 AM OPTOMETRIC COORDINATOR Height 170.2 cm (5' 7 ) 09/18/2024 8:12 AM OPTOMETRIC COORDINATOR Body Mass Index 29.29 09/18/2024 8:12 AM OPTOMETRIC COORDINATOR Plan of Treatment Not on file Procedures Procedure Name Priority Date/Time Associated Diagnosis [...] Most Recently Relevant to Health Maintenance Insurance [facility] MEDICARE MEDICARE [facility] MEDICARE [facility] Care Teams Multifocal Button Inspector Relationship Specialty Start Date End Date Toño Soni MD [address] [facility] [place] [address] [place] [address] PCP - General 02/01/17
== END 2024-11-23 13:49 | disposition home or self-care (01) ==
PROVIDERS: PCP Nurse Practitioner Adult Health; Visit Provider Nurse Practitioner Adult Health
DX: M41.86 Other forms of scoliosis, lumbar region (principal); M47.816 Spondylosis without myelopathy or radiculopathy, lumbar region; M16.11 Unilateral primary osteoarthritis, right hip
CPT/HCPCS: 72100; 73521

== ENCOUNTER 2024-11-25 09:31 | Outpatient (CLI) | payer MEDICARE, OTHER, SELFPAY ==
[2024-11-25 10:19] LABS: Alanine Aminotransferase 12 U/L (6-35); Albumin Level 4.1 g/dL (3.5-5.1); Alkaline Phosphatase 86 U/L (38-126); Anion Gap 7 mmol/L (4-12); Aspartate Amino Transferase 17 U/L (14-36); Bilirubin,Total 0.6 mg/dL (0.2-1.3); Blood Urea Nitrogen 15 mg/dL (7-17); Calcium 9.3 mg/dL (8.4-10.2); Carbon Dioxide 29 mmol/L (22-30); Chloride 102 mmol/L (98-107); Cholesterol 200 mg/dL (0-200); Estimated Glomerular Filt Rate > 60; Glucose 92 mg/dL (65-110); HDL Direct 85 mg/dL; Potassium 4.1 mmol/L (3.4-5.0); Sodium 138 mmol/L (137-145); Triglycerides 97 mg/dL (<150)
[2024-11-25 10:30] LABS: LDL Cholesterol Direct 90 mg/dL
[2024-11-25 10:39] LABS: Vitamin D 25 Hydroxy 99.2 ng/mL
--- OUTSIDE RECORDS SUMMARY | 2024-11-26 22:25 | XMS_ITS | Clinical Summary ---
Author Organization [facility] Medical Office Building B Address [address] [place] [address] Care Team Providers Care Food Porter Name Role Phone Toño Soni MD Primary Care Provider [phone] Allergies No known active allergies Medications cholecalciferol [...] Department Care Team Description 09/18/2024 8:00 AM MANAGER ACTION Office Visit [facility] Medical [facility] Women's Health Care at [address] [address] Radha Rankin NP Well woman [...] on file Legal Sex Female 11:38 AM MANAGER ACTION Gender Identity Female 02/02/2021 4:43 PM CDT Sexual Orientation Not on file Obstetrics History Para Term AB IAB SAB Ectopic Multiple Livin g Live Births 1 1 Date Outcome GA Total Labor Labor/2nd/3rd Weight Sex Type Anes PTL Pau A1 A5 Name Clin Para Last Filed Vital Signs Vital Sign Reading Time Taken Comments Blood Pressure 126/72 09/18/2024 8:12 AM MANAGER ACTION Pulse - - Temperature - - Respiratory Rate - - Oxygen Saturation - - Inhaled Oxygen Concentration - - Weight 84.8 kg (187 lb) 09/18/2024 8:12 AM MANAGER ACTION Height 170.2 cm (5' 7 ) 09/18/2024 8:12 AM MANAGER ACTION Body Mass Index 29.29 09/18/2024 8:12 AM MANAGER ACTION Plan of Treatment Health Maintenance Due Date [...] Most Recently Relevant to Health Maintenance Insurance [facility] MEDICARE [facility] [place] [id number] MEDICARE [facility] [employer] [place] [address] MEDICARE [facility] Care Teams Food Porter Relationship Specialty Start Date End Date Toño Soni MD [address] [place] [address] PCP - General 02/01/17
--- OUTSIDE RECORDS SUMMARY | 2024-11-26 22:25 | XMS_ITS | Referral Summary ---
Author Organization [facility] Medical Office Building B Address [address] [place] [address] Care Team Providers Care Corner Block Cutter Name Role Phone Toño Soni MD Primary Care Provider [phone] Encounters Date Type Department Care Team Description 09/18/2024 8:00 AM FIRE CONTROL TECHNICIAN B Office Visit [facility] Medical [facility] Women's Health Care at [address] [address] Radha Rankin NP Well woman [...] on file Legal Sex Female 11:38 AM FIRE CONTROL TECHNICIAN B Gender Identity Female 02/02/2021 4:43 PM CDT Sexual Orientation Not on file Last Filed Vital Signs Vital Sign Reading Time Taken Comments Blood Pressure 126/72 09/18/2024 8:12 AM FIRE CONTROL TECHNICIAN B Pulse - - Temperature - - Respiratory Rate - - Oxygen Saturation - - Inhaled Oxygen Concentration - - Weight 84.8 kg (187 lb) 09/18/2024 8:12 AM FIRE CONTROL TECHNICIAN B Height 170.2 cm (5' 7 ) 09/18/2024 8:12 AM FIRE CONTROL TECHNICIAN B Body Mass Index 29.29 09/18/2024 8:12 AM FIRE CONTROL TECHNICIAN B Plan of Treatment Not on file Procedures [...] Most Recently Relevant to Health Maintenance Insurance [facility] MEDICARE MEDICARE [facility] [place] [address] [facility] Care Teams Corner Block Cutter Relationship Specialty Start Date End Date Toño Soni MD [address] [facility] [address] [place] [address] PCP - General 02/01/17
== END 2024-11-25 09:32 | disposition home or self-care (01) ==
PROVIDERS: PCP Nurse Practitioner Adult Health; Visit Provider Nurse Practitioner Adult Health
DX: E78.5 Hyperlipidemia, unspecified (principal); R79.89 Other specified abnormal findings of blood chemistry; M81.0 Age-related osteoporosis without current pathological fracture; E55.9 Vitamin D deficiency, unspecified
CPT/HCPCS: 36415; 80053; 80061; 82306

== ENCOUNTER 2025-03-18 14:00 | Outpatient (RCR) | payer MEDICARE, OTHER, SELFPAY ==
--- NOTE | 2025-02-18 13:54 | OPREHPOC ---
Outpatient Therapy Plan of Care This is a Multidisciplinary Plan of Care that may contain components documented by all disciplines (PT, OT, and ST.) PT Problem 1 PT Problem #1 Knowledge Deficit PT Goal 1 Goal / Goal Update Mower with HEP Target Visit 4 PT Goal 2 Goal / Goal Update Report no hip pain greater than 2/10 for 2 consecutive weeks Target Visit 8 PT Problem 2 PT Problem #2 Impaired Range of Motion PT Goal 1 Goal / Goal Update 1. Patient will improve heidi hip abduction ROM to 35 degrees + for improved capsular mobility 2. Improve heidi hip external rotation to 35 degrees to reduce capsular restriction Target Visit 8 PT Problem 3 PT Problem #3 Impaired Strength PT Goal 1 Goal / Goal Update 1. Improve R hip flexion strength to 4/5 to improve foot progression and lift into vehicle 2. Improve heidi hip abduction strength to 4/5 to improve lateral stability with ADL performance Target Visit 8 PT Problem 4 PT Problem #4 Impaired Gait PT Goal 1 Goal / Goal Update 1. Ambulate with even stride length bilaterally and absence of Trendelenburg Antalgia 2. Ambulate for 1/4 mile without increased pain Target Visit 8
--- NOTE | 2025-02-18 13:54 | PTOPEVAL1 ---
Assessment and note entered by Chivo Larson, PT Evaluation Information Assessment Status Evaluation ICD-10 Condition Codes (PT) Pain in low back M54.50,Pain in right hip M25.551 Onset February 2024 Subjective Information Repots that she has had progressive hip and back pain since about a year ago. Sought medical attention in November of this year. First noted that she had to manually lift her right leg into the car. She had imaging done at [place]. She has pain at night and is woken up a lot. She also has a lot of pain with activity and in the top of the thigh. Majority of her pain is front of hip through to the back of her glute fold. Reported Pain Level Pain Score 2: Self Report Assessment PT Clinical Summary Patient presents with signs and symptoms consistent with lumbar stenosis and hip arthritis based on radiographic findings. There is evidence in movement pattern of both arthritic and inflammatory limitations of hip musculature. Patient will benefit form skilled therapy to address deficits to promote improve motion, gait pattern, and gross functional ability. Plan of Care Interventions Electrical Stimulation,Gait Training,Manual Lymph Drainage,Manual Therapy,Neuro Re-education, Therapeutic Activities,Therapeutic Exercise PT Services Indicated Yes These treatments will address the objective and functional deficits as defined above. The patient will be advanced safely and appropriately in order for the patient to progress towards his/her prior level of function. Additional exercises will be introduced and as well as a comprehensive home exercise program upon discharge, if needed, ?to ensure carryover of functional gains achieved in the clinic. This treatment plan has been reviewed and agreement upon by the patient.
--- NOTE | 2025-03-18 14:28 | OPREHPOC ---
Outpatient Therapy Plan of Care This is a Multidisciplinary Plan of Care that may contain components documented by all disciplines (PT, OT, and ST.) PT Problem 1 PT Problem #1 Knowledge Deficit PT Goal 1 Goal / Goal Update [place] with HEP Target Visit 4 Progress Met PT Goal 2 Goal / Goal Update Report no hip pain greater than 2/10 for 2 consecutive weeks Target Visit 8 Progress Met PT Problem 2 PT Problem #2 Impaired Range of Motion PT Goal 1 Goal / Goal Update 1. Patient will improve heidi hip abduction ROM to 35 degrees + for improved capsular mobility 2. Improve heidi hip external rotation to 35 degrees to reduce capsular restriction Target Visit 8 Progress Met PT Problem 3 PT Problem #3 Impaired Strength PT Goal 1 Goal / Goal Update 1. Improve R hip flexion strength to 4/5 to improve foot progression and lift into vehicle 2. Improve heidi hip abduction strength to 4/5 to improve lateral stability with ADL performance Target Visit 8 Progress Partially Met PT Problem 4 PT Problem #4 Impaired Gait PT Goal 1 Goal / Goal Update 1. Ambulate with even stride length bilaterally and absence of Trendelenburg Antalgia 2. Ambulate for 1/4 mile without increased pain Target Visit 8 Progress Met
--- NOTE | 2025-03-18 14:28 | PTOPDC ---
Assessment and note entered by Chivo Larson, PT Evaluation Information Assessment Status Discharge ICD-10 Condition Codes (PT) Pain in low back M54.50,Pain in right hip M25.551 Onset February 2024 Subjective Information Reports that overall she feels she is doing really well. Feels she is striding well and no concerns with progressive gait cycle. Reported Pain Level Pain Score 1: Self Report Assessment PT Clinical Summary Patient has met all goals with excepting of strength goals at this time. Will continue to work on HEP to address deficits. Will be discharged at this time per request. Plan of Care PT Services Indicated Yes
== END 2025-03-18 15:21 | disposition home or self-care (01) ==
LOC: ANHPT 14:00
PROVIDERS: PCP Nurse Practitioner Adult Health
DX: M25.551 Pain in right hip (principal); M54.41 Lumbago with sciatica, right side; M76.891 Other specified enthesopathies of right lower limb, excluding foot; M16.11 Unilateral primary osteoarthritis, right hip
CPT/HCPCS: 97014; 97110; 97140; 97161; G0283

== ENCOUNTER 2025-05-03 13:50 | Outpatient (CLI) | payer MEDICARE, OTHER, SELFPAY ==
--- NOTE | ~2025-05-03 | MM_ITS ---
EXAMINATION: MM screening [facility] BI w balbina HISTORY: Screening mammogram TECHNIQUE: Craniocaudal and mediolateral oblique 3-D tomosynthesis images were obtained and synthetic 2-D images were generated. CAD analysis was submitted and interpreted. COMPARISON: 04/23/2024, 03/28/2023, 03/26/2022, 03/14/2021 BREAST PARENCHYMAL COMPOSITION:Not Dense. There are scattered areas of fibroglandular density. FINDINGS: No suspicious mass, calcification, or architectural distortion are identified in either david ast to suggest malignancy. There has been no suspicious interval change. IMPRESSION: No mammographic evidence of malignancy. Recommend routine screening mammography in one year. BI-RADS Category 1: Negative Reviewed, dictated and finalized at location .
--- OUTSIDE RECORDS SUMMARY | 2025-05-03 14:11 | XMS_ITS | Clinical Summary ---
Author Organization [facility] Address [address] [place] [address] Care Team Providers Care Servicenow Administrator Developer Name Role Phone Toño Soni MD Primary Care Provider [phone] Allergies No known active allergies Medications cholecalciferol (VITAMIN D-3) 2000 unit capsule 2,000 Units Active cyanocobalamin (Vitamin B-12) 2,500 mcg tablet, sublingualIndic ations:Preventi on of Vitamin B12 Deficiency Activ e metoprolol tartrate (LOPRESSOR) 25 mg immediate release tablet Take 1 tablet (25 mg total) by mouth 2 (two) times a day 2 Active calcium carbonate (OS-PAULINO) 648 mg (260 mg elemental) tablet 260 mg Active ergocalciferol (VITAMIN D) 50,000 unit capsule Take 1 capsule (50,000 Units total) by mouth once a week Active calcium carbonate-vitam in D3 (CALTRATE 600 + D) 1500 mg (600 mg elemental) -400 units per tablet 0 Active methylPREDNISol one (MEDROL DOSEPACK) 4 mg Dosepack TAKE 6 TABLETS ON DAY 1 DIRECTED ON PACKAGE AND DECREASE BY 1 TAB EACH DAY FOR A TOTAL OF 6 DAYS 5 Active metoprolol XL (TOPROL-XL) 25 mg extended release tablet Take 1 tablet (25 mg total) by mouth daily 5 Active meloxicam (MOBIC) 15 mg tabletIndicatio ns:Osteoarthrit is Take 1 tablet (15 mg total) by mouth daily 30 tablet 1 5 06/05/20 25 Active meloxicam (MOBIC) 15 mg tabletIndicatio ns:Osteoarthrit is Take 1 tablet (15 mg total) by mouth daily 30 tablet 5 04/06/20 25 Discontinu ed(Reorder ) Active Problems Problem Noted Date Diagnosed Date Melanoma in situ of left upper extremity includi ng shoulder 02/07/2021 History of female genital system disorder 2012 Overview (02/06/2017): History of endometriosis Encounters Date Type Department Care Team Description 04/20/2025 1:29 PM CDT - 04/20/2025 11:59 PM CDT Hospital Encounter [facility] 2 [facility] [address] [place] [address] Maia Baumann NP Primary osteoarthritis of right hip (Primary Dx) Discharge Disposition: Discharge to home or self care 04/06/2025 12:08 PM CDT - 04/06/2025 11:59 PM CDT Hospital Encounter [facility] 2 [facility] A[address] [place] [address] Marino Almaraz MD Right hip pain; Primary osteoarthritis of right hip Discharge Disposition: Discharge to home or self care 03/09/2025 8:22 AM CDT - 03/09/2025 11:59 PM CDT Hospital Encounter [facility] 2 [facility] A[address] [place] [address] Marino Almaraz MD Right hip pain; Primary osteoarthritis of right hip; Hip abductor tendonitis, right; Acute back pain with sciatica, right Discharge Disposition: Discharge to home or self care 02/09/2025 Telephone [facility] 4 [facility] [address] [place] [phone] Josh Quintanilla MD 02/04/2025 Orders Only [facility] [address] [place] [phone] Wade, Bethanie Anaid, RELATIONS COORDINATOR Right hip pain (Primary Dx); Primary osteoarthritis of right hip; Hip abductor tendonitis, right; Acute back pain with sciatica, right 02/03/2025 Orders Only [facility] [address] [place] [address] [address] [place] [address] Bethanie Olvera NP Right hip pain (Primary Dx); Primary osteoarthritis of right hip; Hip abductor tendonitis, right; Acute back pain with sciatica, right 02/01/2025 Telephone [facility] [address] [place] [address] [address] [place] [address] Bethanie Olvera NP from Last 3 Months Surgical History Surgery Date Site/Laterality Comments OTHER SURGICAL HISTORY 1996 Cholecystitis: Cholecystectomy OTHER SURGICAL HISTORY 1986 laprascopy OTHER SURGICAL HISTORY 1971 : 12 hr labor OTHER SURGICAL HISTORY 1988 laprascopy BREAST BIOPSY 1966 breast biopsy CHOLECYSTECTOMY CATARACT EXTRACTION, BILATERAL Bilateral TONSILECTOMY, ADENOIDECTOMY, BILATERAL MYRINGOTOMY AND TUBES AGE 3 Medical History Medical History Date Comments Hx Other Medical 1996 Cholecystitis Hx Other Medical 1971 ; Outc ome: 40 week 6 lb(s) Male Hypertension Family History Medical History Relation Name Comments Colon cancer Father Cancer, colon; Stroke Paternal Grandfather Colon cancer Paternal Grandmother Cancer, colon; Relation Name Status Comments Father Paternal Grandfather Paternal Grandmother Social History Tobacco Use Types Packs/Day Years Used Date Smoking Tobacco: Never Smokeless Tobacco: Never Alcohol Use Standard Drinks/Week Comments Yes 0 (1 standard drink = 0.6 oz pur e alcohol) AUDIT-C Answer Date Recorded Q1: How often do you have a drink containing alcohol? Never 01/29/2025 Q2: How many drinks containi ng alcohol do you have on a typical day when you are drinking? Patient does not drink Q3: How often do you have si x or more drinks on one occasion? 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 Gender Identity Female 02/02/2021 4:43 PM CDT Sexual Orientation Not on file Obstetrics History Para Term AB IAB SAB Ectopic Multiple Livin g Live Births 1 1 Date Outcome GA Total Labor Labor/2nd/3rd Weight Sex Type Anes PTL Pau A1 A5 Name Clin Para Last Filed Vital Signs Vital Sign Reading Time Taken Comments Blood Pressure 126/59 04/20/2025 1:48 PM CDT Pulse 73 04/20/2025 1:48 PM CDT Temperature 36.3 C (97.4 F) 04/06/2025 12:25 PM CDT Respiratory Rate 16 04/20/2025 1:48 PM CDT Oxygen Saturation 97% 04/20/2025 1:48 PM CDT Inhaled Oxygen Concentration - - Weight 84.4 kg (186 lb) 01/29/2025 8:31 AM CDT Height 170.2 cm (5' 7) 01/29/2025 8:31 AM CDT Body Mass Index 29.13 01/29/2025 8:31 AM CDT Plan of Treatment Health Maintenance Due Date Last Done Comments Fall Risk Assessment 1950 Hepatitis C Screening 1950 DTaP/Tdap/Td Vaccine (1 - Tdap) 1959 Hepatitis B Screening 1966 Zoster Vaccine (1 of 2) 1998 Well Visit 65+ 2013 Pneumococcal vaccine 65+ (2 of 2 - PCV) 09/03/2019 09/03/2018 Osteoporosis Screening-Bone Density Scan 05/04/2022 05/04/2020 Influenza Vaccine (Season Ended) 2025 08/01/2020, 08/21/2019, 07/30/2018, Additional history exists Depression Screening 03/09/2026 03/09/2025, 03/09/2025, 09/18/2024, Additional history exists Breast Cancer Screening-Mammogram Discontinued 05/05/2024, 03/28/2023, 03/26/2022, Additional history exists Procedures Procedure Name Priority Date/Time Associated Diagnosis Comments PAIN MGMT IMAGING ULTRASOUND SHOULDER, HIP, KNEE JOINT/BURSA INJ RIGHT Schedule Routine, Read Routine (OP Routine) 04/06/2025 12:08 PM CDT Right hip pain Primary osteoarthritis of right hip SCREENING MAMMOGRAM 2D BILATERAL Schedule Routine, Read Routine (OP Routine) 05/05/2024 8:54 AM CDT DEXA AXIAL SKELETON BONE DENSITY 1 OR MORE SITES Schedule Routine, Read Routine (OP Routine) 05/04/2020 from Last 3 Months or Most Recently Relevant to Health Maintenance Results * Imaging Ultrasound Shoulder, Hip, Knee Joint/Bursa INJ Right () (04/06/2025 12:08 PM CDT) Narrative [facility] - 04/06/2025 12:08 PM CDT The images from this study are not interpreted by Radiology. Please refer to the physician's procedure / OR operative note. us Marino Almaraz MD IMG PAIN MGMT PROCEDURE S Final Result [facility] * Screening Mammogram 2D Bilateral (05/05/2024 8:54 AM CDT) Anatomical Region Laterality Modality Breast Bilateral Mammography us Historical Provider IMG MAMMO PROCEDURES Chuyita l Result * Dexa Axial Skeleton Bone Density 1 or 2 Site (05/04/2020) Anatomical Region Laterality Modality Body N/A Radiographic Ladan ging Jaleesa Johnson NP IMG DXA PROCEDURES Final Result from Last 3 Months or Most Recently Relevant to Health Maintenance Insurance [facility] MEDICARE [facility] [employer] [place] [address] MEDICARE Member Subscriber Plan / Payer ( fective 2013-Present) Name:Jewell Mathur Member ID:[id number] Relation to Subscriber:Self Name:Jorge Mathurudjuan j Villa Subscriber ID:[id number] Payer ID:[id number] Group ID:Not on file Type:MEDICARE TRADITIONAL Address: [place] [phone] [facility] [employer] [place] [address] MEDICARE [facility] Care Teams Servicenow Administrator Developer Relationship Specialty Start Date End Date Toño Soni MD [address] [facility] [address] [facility] [address] [place] [address] PCP - General 02/01/17
--- OUTSIDE RECORDS SUMMARY | 2025-05-03 14:11 | XMS_ITS | Referral Summary ---
Author Organization [facility] Medical Office Building B Address [address] [place] [address] Care Team Providers Care Alumni Coordinator Name Role Phone Toño Soni MD Primary Care Provider [phone] Encounters Date Type Department Care Team Description 04/20/2025 1:29 PM CDT - 04/20/2025 11:59 PM CDT Hospital Encounter [facility] [place] [address] Maia Baumann NP Primary osteoarthritis of right hip (Primary Dx) Discharge Disposition: Discharge to home or self care 04/06/2025 12:08 PM CDT - 04/06/2025 11:59 PM CDT Hospital Encounter [facility] [address] [place] [address] Marino Almaraz MD Right hip pain; Primary osteoarthritis of right hip Discharge Disposition: Discharge to home or self care 03/09/2025 8:22 AM CDT - 03/09/2025 11:59 PM CDT Hospital Encounter [facility] [address] [place] [address] Marino Almaraz MD Right hip pain; Primary osteoarthritis of right hip; Hip abductor tendonitis, right; Acute back pain with sciatica, right Discharge Disposition: Discharge to home or self care 02/09/2025 Telephone [facility] Medicine 4 [facility] [address] [place] [address] Josh Quintanilla MD 02/04/2025 Orders Only [facility] Orthopedic [facility] Sports Medicine [address] [place] [phone] Bethanie Olvera NP Right hip pain (Primary Dx); Primary osteoarthritis of right hip; Hip abductor tendonitis, right; Acute back pain with sciatica, right 02/03/2025 Orders Only [facility] [address] [place] [address] [address] [place] [phone] Bethanie Olvera NP Right hip pain (Primary Dx); Primary osteoarthritis of right hip; Hip abductor tendonitis, right; Acute back pain with sciatica, right 02/01/2025 Telephone [facility] [address] [place] [address] [address] [place] [address] Bethanie Olvera NP from Last 3 Months Allergies No known [...] on file 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 Marino Almaraz MD IMG PAIN MGMT PROCEDURE [...] Most Recently Relevant to Health Maintenance Insurance [facility] MEDICARE MEDICARE [facility] MEDICARE [facility] Care Teams Alumni Coordinator Relationship Specialty Start Date End Date Toño Soni MD [address] [facility] [address] [place] [address] PCP - General 02/01/17
== END 2025-05-03 13:51 | disposition home or self-care (01) ==
LOC: ANHIMG 13:53
PROVIDERS: PCP Nurse Practitioner Adult Health; Visit Provider Obstetrics & Gynecology
DX: Z12.31 Encounter for screening mammogram for malignant neoplasm of breast (principal)
CPT/HCPCS: 77063; 77067

== ENCOUNTER 2025-05-26 07:39 | Outpatient (CLI) | payer MEDICARE, OTHER, SELFPAY ==
--- OUTSIDE RECORDS SUMMARY | 2025-05-26 07:44 | XMS_ITS | Referral Summary ---
Author Organization [facility] Building B Address [address] [place] [address] Care Team Providers Care Baseball Inspector And Repairer Name Role Phone Toño Soni MD Primary Care Provider [phone] Encounters Date Type Department Care Team Description 05/05/2025 Orders Only [facility] [address] [facility] [address] [place] [address] ProviderKarina MD 04/20/2025 1:29 PM CDT - 04/20/2025 11:59 PM CDT Hospital Encounter [facility] [address] [place], [place] [address]dg [address], [address] [place] [address] Maia Baumann NP Primary osteoarthritis of right hip (Primary Dx) Discharge Disposition: Discharge to home or self care 04/06/2025 12:08 PM CDT - 04/06/2025 11:59 PM CDT Hospital Encounter [facility] [address] [place], [place] [address]dg A, [address] [place] [address] Marino Almaraz MD Right hip pain; Primary osteoarthritis of right hip Discharge Disposition: Discharge to home or self care 03/09/2025 8:22 AM CDT - 03/09/2025 11:59 PM CDT Hospital Encounter [facility] [address] [place] [address] [address], [address] [place] [address] Marino Almaraz MD Right hip pain; Primary osteoarthritis of right hip; Hip abductor tendonitis, right; Acute back pain with sciatica, right Discharge Disposition: Discharge to home or self care from Last 3 Months Allergies No known [...] (600 mg elemental) -400 units per tablet 04/16/2020 Active methylPREDNISol one (MEDROL DOSEPACK) 4 mg Dosepack TAKE 6 TABLETS ON DAY 1 DIRECTED ON PACKAGE AND DECREASE BY 1 TAB EACH DAY FOR A TOTAL OF 6 DAYS 11/23/2024 Active metoprolol XL (TOPROL-XL) 25 mg extended release tablet Take 1 tablet (25 mg total) by mouth daily 11/25/2024 Active meloxicam (MOBIC) 15 mg tabletIndicatio ns:Osteoarthrit is Take 1 tablet (15 mg total) by mouth daily 30 tablet 1 04/06/2025 06/05/20 25 Active Active Problems Problem Noted Date Diagnosed [...] on file 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 Gender Identity Female 02/02/2021 4:43 PM CDT [...] Priority Date/Time Associated Diagnosis Comments SCREENING MAMMOGRAM BILATERAL W DARIAN Schedule Routine, Read Routine (OP Routine) 05/03/2025 3:40 PM CDT PAIN MGMT IMAGING ULTRASOUND SHOULDER, HIP, KNEE JOINT/BURSA INJ RIGHT Schedule Routine, Read Routine (OP Routine) 04/06/2025 12:08 PM CDT Right hip pain Primary osteoarthritis of right hip DEXA AXIAL SKELETON BONE DENSITY 1 OR MORE SITES Schedule Routine, Read Routine (OP Routine) 05/04/2020 from Last 3 Months or Most Recently Relevant to Health Maintenance Results * Screening Mammogram Bilateral W Darian (05/03/2025 3:40 PM CDT) Anatomical Region Laterality Modality Breast Bilateral Mammography us Historical Provider MD LOVELACE MAMMO PROCEDURES Chuyita l Result * Imaging Ultrasound Shoulder, Hip, Knee Joint/Bursa INJ Right () (04/06/2025 12:08 PM CDT) Narrative [facility] - 04/06/2025 12:08 PM CDT The images from this study are not interpreted by Radiology. Please refer to the physician's procedure / OR operative note. us Marino Almaraz MD IMG PAIN MGMT PROCEDURE S Final Result [facility] * Dexa Axial Skeleton Bone Density 1 or 2 Site (05/04/2020) Anatomical Region Laterality Modality Body N/A Radiographic Ladan ging us Jaleesa Johnson NP IMG DXA PROCEDURES Final Result from Last 3 Months or Most Recently Relevant to Health Maintenance Insurance [facility] MEDICARE MEDICARE [facility] MEDICARE [facility] Care Teams Baseball Inspector And Repairer Relationship Specialty Start Date End Date Toño Soni MD [address] [place] [id number] PCP - General 02/01/17
--- OUTSIDE RECORDS SUMMARY | 2025-05-26 07:44 | XMS_ITS | Clinical Summary ---
Author Organization [facility] Address [address] [place] [address] Care Team Providers Care Arts Education Teacher Name Role Phone Toño Soni MD Primary Care Provider [phone] Allergies No known active allergies Medications cholecalciferol [...] Department Care Team Description 05/05/2025 Orders Only [facility] 4 [facility] [address] [place] [address] Provider, MD Karina 04/20/2025 1:29 PM CDT - 04/20/2025 11:59 PM CDT Hospital Encounter [facility] 2 [facility]dg A[address] [place] [address] Maia Baumann NP Primary osteoarthritis of right hip (Primary Dx) Discharge Disposition: Discharge to home or self care 04/06/2025 12:08 PM CDT - 04/06/2025 11:59 PM CDT Hospital Encounter [facility] 2 [facility]Note 3[facility]dg A[address] [place] [address] Marino Almaraz MD Right hip pain; Primary osteoarthritis of right hip Discharge Disposition: Discharge to home or self care 03/09/2025 8:22 AM CDT - 03/09/2025 11:59 PM CDT Hospital Encounter [facility] 2 [facility]Note 3[facility]dg 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 Gender Identity Female 02/02/2021 4:43 PM CDT [...] Density Scan 05/04/2022 05/04/2020 Influenza Vaccine (#1) 2025 , 08/21/2019, 07/30/2018, Additional history exists Depression Screening 03/09/2026 03/09/2025, 03/09/2025, 09/18/2024, Additional history exists Breast Cancer Screening-Mammogram Discontinued 05/03/2025, 05/05/2024, 03/28/2023, Additional history exists Procedures Procedure Name Priority [...] Laterality Modality Breast Bilateral Mammography Historical Provider IMMehrdad MAMMO PROCEDURES Chuyita l Result * Imaging [...] Most Recently Relevant to Health Maintenance Insurance [facility] MEDICARE MEDICARE [facility] MEDICARE [facility] Care Teams Arts Education Teacher Relationship Specialty Start Date End Date Toño Soni MD [address] [facility] [address] [place] [phone] PCP - General 02/01/17
[2025-05-26 08:37] LABS: Alanine Aminotransferase 14 U/L (6-35); Albumin Level 3.9 g/dL (3.5-5.1); Alkaline Phosphatase 86 U/L (38-126); Anion Gap 4 mmol/L (4-12); Aspartate Amino Transferase 26 U/L (14-36); Bilirubin,Total 0.2 mg/dL (0.2-1.3); Blood Urea Nitrogen 9 mg/dL (7-17); Calcium 9.4 mg/dL (8.4-10.2); Carbon Dioxide 31 mmol/L (22-30); Chloride 101 mmol/L (98-107); Cholesterol 203 mg/dL (0-200); Estimated Glomerular Filt Rate > 60; Glucose 89 mg/dL (65-110); HDL Direct 83 mg/dL; Potassium 4.1 mmol/L (3.4-5.0); Sodium 136 mmol/L (137-145); Total Protein 6.5 g/dL (6.3-8.2); Triglycerides 71 mg/dL (<150)
== END 2025-05-26 07:40 | disposition home or self-care (01) ==
LOC: ANHLAB 07:41
PROVIDERS: PCP Nurse Practitioner Adult Health; Visit Provider Nurse Practitioner Adult Health
DX: I10 Essential (primary) hypertension (principal); R79.89 Other specified abnormal findings of blood chemistry
CPT/HCPCS: 36415; 80053; 80061